=== PATIENT | female | born 1955 | race Caucasian/White ===

== ENCOUNTER 2024-05-09 15:23 | Emergency (ER) | payer OTHER ==
[2024-05-09] MEDS ORDERED: Nystatin Powder 15 GM BOT TOP SCH (16:00)
== END 2024-05-09 21:20 | disposition home or self-care (01) ==
LOC: CSHERS 15:23
DX: L25.9 Unspecified contact dermatitis, unspecified cause (principal)
CPT/HCPCS: 99283